=== PATIENT | female | born 1985 | race Caucasian/White ===

== ENCOUNTER 2017-12-27 16:01 | Emergency (ER) | payer OTHER ==
--- NOTE | 2017-12-27 17:10 | RAD ---
RIGHT HAND 3 VIEWS: Date: 12/27/17 HISTORY: Injury with pain. FINDINGS: Carpals appear normally aligned. Metacarpals and phalanges appear intact. IMPRESSION: No acute abnormality identified. POS: SUSI
== END 2017-12-27 17:01 | disposition home or self-care (01) ==
LOC: ERS 16:01
DX: S60.011A Contusion of right thumb without damage to nail, initial encounter (principal); Z87.442 Personal history of urinary calculi; W23.0XXA Caught, crushed, jammed, or pinched between moving objects, initial encounter

== ENCOUNTER 2018-06-23 12:40 | Emergency (ER) | payer OTHER ==
[2018-06-23] MEDS ORDERED: Ondansetron PF 4 MG/2 ML Vial ONE (13:13)
[2018-06-23] MEDS ORDERED: Famotidine/PF 20 mg/2ml Vial ONE (13:13)
[2018-06-23] MEDS ORDERED: Lidocaine Viscous Sol 2% 15 ml UD Cup ONE (13:13)
[2018-06-23] MEDS ORDERED: Mag-Al Plus 1200 MG/1200 MG/120 MG/30 ML UDCUP ONE (13:13)
[2018-06-23 13:16] LABS: #Basophils 0.1 thou/uL (0.0-0.2); #Eosinphils 0.1 thou/uL (0.0-0.7); #Lymphocytes 2.2 thou/uL (1.20-3.40); #Monocytes 0.4 thou/uL (0.11-0.59); #Neutrophils 4.4 thou/uL (1.40-6.50); %Basophils 1.1 % (0.0-1.0); %Eosinophils 1.8 % (0.0-10.0); %Lymphocytes 29.9 % (21.0-51.0); %Monocytes 6.1 % (0.0-10.0); %Neutrophils 61.1 % (42.0-75.0); Hemoglobin 13.8 g/dL (12.0-16.0); Mean Corpuscular HGB CONC 33.6 g/dL (32.0-36.0); Mean Corpuscular Hemoglobin 30.7 pg (27.0-31.0); Mean Corpuscular Volume 91.5 fL (78.0-98.0); Mean Platelet Volume 9.9 fL (7.4-10.4); Platelet Count 235 thou/uL (130-400); RBC Distribution Width 11.1 % (11.5-14.5); White Blood Cell (WBC) Count 7.2 thou/uL (4.8-10.8)
[2018-06-23 13:20] LABS: CK (CPK) 93 U/L (29-168)
[2018-06-23 13:26] LABS: CKMB 1.1 ng/mL (0-6.6); Troponin I Less than 0.010 ng/mL (< 0.028)
[2018-06-23 13:31] LABS: Pregnancy Test - Urine (BHCG) Negative (Negative)
[2018-06-23 13:32] LABS: Bilirubin Negative (Negative); Blood, Urine Negative (Negative); Clarity Clear (Clear); Glucose, Urine (Dipstick) Negative (Negative); Leukocyte Negative (Negative); Nitrite Negative (Negative); Pregu Control Background? CLEAR/WHITE (CLR/WHITE); Pregu Control Bar Appear? YES (CONTROL BAR); Protein, Urine (Dipstick) Negative (Neg-Trace); Specific Gravity 1.026 (1.002-1.036); Specific Gravity, Urine 1.026 (1.002-1.036); Urobilinogen 0.2 mg/dL (0.2-1.0); pH, Urine 5.5 (5.0-9.0)
[2018-06-23 13:41] LABS: ALT (SGPT) 28 U/L (8-55); AST (SGOT) 27 U/L (5-34); Albumin 4.3 g/dL (3.5-5.0); Alkaline Phosphatase 56 U/L (40-150); Anion Gap 14 mmol/L (10-20); BUN (Urea Nitrogen) 12 mg/dL (7.0-18.7); Bilirubin, Total 0.3 mg/dL (0.2-1.2); Calc. Creatinine Clearance 0 mL/min (70-130); Calcium 9.6 mg/dL (7.8-10.44); Carbon Dioxide 23 mmol/L (22-29); Chloride 105 mmol/L (98-107); Estimated GFR-MDRD 85; Globulin 3.6 g/dL (2.4-3.5); Glucose 85 mg/dL (70-105); Potassium 3.7 mmol/L (3.5-5.1); Protein, Total 7.9 g/dL (6.0-8.3); Sodium 138 mmol/L (136-145)
[2018-06-23 13:44] LABS: Lipase 15 U/L (8-78)
--- NOTE | 2018-06-23 14:07 | CT ---
CT ABDOMEN AND PELVIS WITHOUT CONTRAST: HISTORY: Abdominal pain. FINDINGS: Comparison is made with the exam of 11/16/2013. Absence of oral and IV contrast reduces the sensitivity of the exam, particularly for evaluation of s olid organs involved. The lung bases are clear. The patient is post cholecystectomy. No free air or free fluid is seen in the abdomen or pelvis. No calculi are noted in the kidneys, ureters, or the urinary bladder. No hy droureteral nephrosis seen on either side. A normal-appearing appendix is present. Uterus and ovari es are present. Pelvic phleboliths are again noted. No acute osseous abnormalities are seen. IMPRESSION: No CT evidence of urinary tract calculi/obstruction or appendicitis. POS: TPC
== END 2018-06-23 14:25 | disposition home or self-care (01) ==
LOC: SCSER 12:40
DX: R10.816 Epigastric abdominal tenderness (principal); Z79.84 Long term (current) use of oral hypoglycemic drugs; Z79.899 Other long term (current) drug therapy
CPT/HCPCS: 74176; 80053; 81003; 81025; 82550; 83690; 84484; 85025; 85379; 93005; 96361; 96374; 96375; J2405; S0028

== ENCOUNTER 2019-03-09 19:39 | Emergency (ER) | payer BC | END 2019-03-09 20:00 | disposition home or self-care (01) | LOC: ER/OP 19:39 | DX: Z53.21 Procedure and treatment not carried out due to patient leaving prior to being seen by health care provider (principal) | CPT/HCPCS: 87081; 87430 ==

== ENCOUNTER 2019-12-05 20:14 | Day surgery (SDC) | payer BC ==
[2019-12-05 20:51] VITALS: BP 120/74; TEMP 98.3; BMI 25.7
[2019-12-05] MEDS ORDERED: hydrALAZINE 20 MG/ML VIAL SLOW IVP PRN (21:18)
--- NOTE | 2019-12-05 21:22 | PDOC.LDHP ---
Labor and Delivery H&P Chief complaint: contractions HPI: 24yo @ 37wks by IVF complicated by A2GDM presents for contractions. States has had multiple days of contractions but starting about 1830 at onset of regular, more intense ctx, about every 2-4 min, prompting visit to labor triage. Denies any LOF, vaginal bleeding, change in vaginal discharge. + movement. Ctx now are slightly less intense per patient. Denies any MEDINA, vision changes, CP, SOB, n/v, fever/chills. Current gestational age (weeks): 37 Due date: 12/26/19 Dating criteria: other (IVF) Grav: 3 Para: 1 (0111) OB History Details: history of 1 Spontaneous ab after IVF History of PPROM at 35 weeks with son, stayed 1 week in NICU, velamentous cord insertion PCOS, on metformin A2GDM - well-controlled Current complications: gestational diabetes Past Medical History: PCOS SVT s/p ablation hypothyroidism nephrolithiasis Current medications: pre-jed vitamins, other (Vit D, claritin, flonase, levothyroxine, metformin XR) Previous surgical history: cholecystectomy, other (Right knee) Allergies/Adverse Reactions: Allergies Allergy/AdvReac Type Severity Reaction Status Date / Time erythromycin base Allergy Severe Verified 10/18/19 08:35 [Erythromycin Base] amoxicillin [Amoxicillin] Allergy Intermediate Rash Verified 10/18/19 08:35 Social history: none - Physical Exam Vital signs reviewed and normal: yes General: NAD, resting Heart: RRR Lungs: CTAB Abdomen: gravid Extremeties: no edema FHT: category 1 (accels, no deccels), variability present (moderate) [place] contractions every: 2-4 min - Vaginal Exam cm dilated: 3 Effacement: 75% Station: -2 - OB Labs Blood type: A RH: positive Antibody Screen: negative HIV: negative RPR: negative HEPSAg: negative 1 hour GCT: positive 3 hour GTT: 194 GBS: negative Rubella: immune - Assessment Term, SIUP, contractions - Plan -: 24yo @ 37wks by IVF complicated by A2GDM presents for contractions. #Term SIUP, labor check - 37wks by IVF - No leakage of fluid - SVE 3/75/-2, intact - Cat 1 strip with contractions q2-4min - Will allow to ambulate and hydrate, recheck in 2 hours to determine if progressing to active labor - GBS negative - prefers no epidural #Hypothyroidism - Continue home meds #A2GDM - well-controlled, on metformin PCP: Tori Above plan and documentation discussed with Dr. Burns, who agrees with plan.
--- NOTE | 2019-12-05 22:18 | HP ---
TIME OF EVALUATION: Roughly 2139. Time now for dictation is 2154. LOCATION: Labor and Delivery in [facility]. CHIEF COMPLAINT: Possible contractions. HISTORY OF PRESENT ILLNESS: In brief, this is a 34-year-old patient, who is a G3, P-0-1-1-1 who is at 37 weeks by IVF, who also has A2 diabetes, on metformin. She is here for on and off contractions for the last several days, but increasing since about 6 p.m. She has no leakage of fluid or vaginal bleeding. She was about 3 cm, 75% last when she was checked in the office and she is about the same here. Her contractions are present on the tocodynamometer about every 2 to 4 minutes, but they are also somewhat irregular. Vital signs are also stable. I have ordered an Accu-Chek at bedside. As the heart tones are reactive and she is still in the latent phase, at early term, we will observe for a total of 2 hours and if she is unchanged, we will likely send home. I have seen the patient at bedside and agree with the plan as outlined by Dr. Woodard who has also evaluated the patient. This is also my faculty attestation. Job ID: [id number]
--- NOTE | 2019-12-05 23:10 | PDOC.LDPN ---
Labor & Delivery Progress Note - Subjective Subjective: comfortable - Objective Vital signs reviewed and normal: yes General: NAD, resting Uterine fundus: non tender SVE: / FHT: category 1 [place] contractions every: 4-5 Plan: other (discharge) -: 24yo @ 37wks by IVF complicated by A2GDM presents for contractions. #Term SIUP, labor check - 37wks by IVF - No leakage of fluid - SVE /-2, intact - Repeat SVE 2 hours after presentation, unchanged at /-2 - Cat 1 strip with contractions q4-5min, not felt much by patient - GBS negative - prefers no epidural #Hypothyroidism - Continue home meds #A2GDM - well-controlled, on metformin Dispo: No cervical change after 2 hours. Cat 1 strip at presentation and prior to discharge. Latent labor. Discharge home with labor precautions. Patient voiced understanding and agreement, all questions answered. Encouraged to follow up with OB as previously directed. PCP: Tori Above plan and documentation discussed with Dr. Burns, who agrees with plan.
== END 2019-12-05 23:45 | disposition home or self-care (01) ==
LOC: L&D/OP 20:14
PROVIDERS: ATTEND Student in an Organized Health Care Education/Training Program
DX: O47.1 False labor at or after 37 completed weeks of gestation (principal); O24.415 Gestational diabetes mellitus in pregnancy, controlled by oral hypoglycemic drugs; O99.283 Endocrine, nutritional and metabolic diseases complicating pregnancy, third trimester; E28.2 Polycystic ovarian syndrome; E03.9 Hypothyroidism, unspecified; O09.293 Supervision of pregnancy with other poor reproductive or obstetric history, third trimester; O09.813 Supervision of pregnancy resulting from assisted reproductive technology, third trimester; Z3A.37 37 weeks gestation of pregnancy; Z79.84 Long term (current) use of oral hypoglycemic drugs; Z79.899 Other long term (current) drug therapy; Z88.1 Allergy status to other antibiotic agents; Z88.0 Allergy status to penicillin
CPT/HCPCS: 99283

== ENCOUNTER 2019-12-06 22:34 | Day surgery (SDC) | payer BC ==
[2019-12-06 23:03] VITALS: BP 114/75; TEMP 98.8; BMI 25.7
--- NOTE | 2019-12-06 23:24 | PDOC.LDHP ---
Labor and Delivery H&P Chief complaint: contractions HPI: 34 y/o at 36w5d by IVF dating, patient of Dr. Valle, presents with ctx q 5 mins. Denies VB, LOF, or decreased FM. Was seen here last night and 3cm. Has continued to ctx today but started feeling them more in her back so she decided to come back in. ROS neg for HEENT, cv, pulm, gi, gu, neuro, psych, skin, musculoskeletal or constitutional symptoms other than mentioned above. OB History Details: 1st delivery at 35+ weeks after PROM 1 SAB Current complications: gestational diabetes (A2), other (IVF ) Current medications: pre- vitamins, other (meformin) Previous surgical history: none Allergies/Adverse Reactions: Allergies Allergy/AdvReac Type Severity Reaction Status Date / Time erythromycin base Allergy Severe Verified 12/06/19 22:53 [Erythromycin Base] amoxicillin [Amoxicillin] Allergy Intermediate Rash Verified 12/06/19 22:53 Social history: none - Physical Exam Vital signs reviewed and normal: yes General: NAD, resting Lungs: nonlabored breathing Abdomen: gravid Extremeties: no edema FHT: category 1 (135, mod variability, + accels, no decels) [place] contractions every: 6 mins - Vaginal Exam cm dilated: 3 Effacement: 75% Station: -2 - Assessment 34 y/o at 36w5d with no e/o active labor. status reassuring with reactive NST. - Plan -: Given option to stay and be rechecked but desires to go home and return if sx worsen. D/c home with precautions. Advised to keep all appointments.
== END 2019-12-06 23:35 | disposition home or self-care (01) ==
LOC: L&D/OP 22:34
PROVIDERS: ATTEND Student in an Organized Health Care Education/Training Program
DX: O47.03 False labor before 37 completed weeks of gestation, third trimester (principal); O24.415 Gestational diabetes mellitus in pregnancy, controlled by oral hypoglycemic drugs; O09.813 Supervision of pregnancy resulting from assisted reproductive technology, third trimester; O09.293 Supervision of pregnancy with other poor reproductive or obstetric history, third trimester; Z3A.36 36 weeks gestation of pregnancy; Z79.84 Long term (current) use of oral hypoglycemic drugs; Z88.0 Allergy status to penicillin; Z88.1 Allergy status to other antibiotic agents
CPT/HCPCS: 99282

== ENCOUNTER 2019-12-20 18:19 | Inpatient (IN) | payer BC ==
[2019-12-20] MEDS ORDERED: Butorphanol Tartrate 1 MG/ML VIAL SLOW IVP PRN (20:36)
[2019-12-20] MEDS ORDERED: Promethazine HCl 25 MG/ML VIAL IM PRN (20:36)
[2019-12-20] MEDS ORDERED: NS / Oxytocin 40 units/1000ml 1,000 ML IV PRN (20:36)
[2019-12-20] MEDS ORDERED: HYDROcodone/Acetaminophen 5/325 mg Tablet PO PRN ×2 (20:36)
[2019-12-20] MEDS ORDERED: Lidocaine 1% (PF) 30 ML VIAL SC PRN (20:36)
[2019-12-20] MEDS ORDERED: Ibuprofen 800 MG TAB PO PRN (20:36)
[2019-12-20] MEDS ORDERED: Ondansetron PF 4 MG/2 ML Vial IVP PRN (20:36)
[2019-12-20] MEDS ORDERED: hydrALAZINE 20 MG/ML VIAL SLOW IVP PRN (20:36)
[2019-12-20] MEDS ORDERED: Lactated Ringer's 1,000 ML IV SCH (20:45)
--- NOTE | 2019-12-20 20:46 | PDOC.LDHP ---
Labor and Delivery H&P Chief complaint: contractions HPI: 34 yo WF presents c/o regular UCs since this PM. Denies SROM or bleeding. Current gestational age (weeks): 38 Due date: 12/29/19 Dating criteria: last menstrual period Grav: 3 Para: 1 OB History Details: at 35 weeks SAB, no D&C Current complications: gestational diabetes Abnormal US findings: No Past Medical History: PCO kidney stones Current medications: pre-jed vitamins, iron, other (Metformin 1500 q HS) Previous surgical history: cholecystectomy, none (ureteral stent knee ablation for SVT) Allergies/Adverse Reactions: Allergies Allergy/AdvReac Type Severity Reaction Status Date / Time erythromycin base Allergy Severe Verified 12/20/19 18:42 [Erythromycin Base] amoxicillin [Amoxicillin] Allergy Intermediate Rash Verified 12/20/19 18:42 Social history: none - Physical Exam Vital signs reviewed and normal: yes General: resting Heart: RRR Lungs: CTAB Abdomen: gravid Extremeties: trace edema FHT: category 1 [place] contractions every: q 3-6 mins - Vaginal Exam cm dilated: 5 Effacement: 75% Station: -1 - OB Labs Blood type: A RH: positive Antibody Screen: negative HIV: negative RPR: negative HEPSAg: negative GBS: negative Rubella: immune - Assessment L&D Assessment: term patient in labor (early labor) - Plan Plan: admit to L&D, informed consent obtained, anesthesia consult for pain management, other (Dr. Valle notified of admit)
[2019-12-20 21:10] LABS: Hemoglobin 12.3 g/dL (12.0-16.0); Mean Corpuscular HGB CONC 34.3 g/dL (32.0-36.0); Mean Corpuscular Hemoglobin 28.8 pg (27.0-31.0); Mean Corpuscular Volume 83.9 fL (78.0-98.0); Mean Platelet Volume 11.2 fL (7.4-10.4); Platelet Count 146 thou/uL (130-400); RBC Distribution Width 16.5 % (11.5-14.5); Red Blood Cell (RBC) Count 4.27 mill/uL (4.20-5.40)
[2019-12-20 21:51] LABS: Syphilis Antibody Nonreactive (Nonreactive); Syphilis Antibody Index 0.05 S/CO (<1.00 Non-Reactive)
[2019-12-20 22:08] LABS: HBSAg Index 0.15 S/CO (0-0.99); Hep B Surf Ag Non-Reactive S/CO (NonReactive)
[2019-12-20 22:39] VITALS: BMI 25.8
[2019-12-21] MEDS ORDERED: NS w/ Oxytocin 10 units 500 ML IV SCH (07:45)
[2019-12-21] MEDS: Lactated Ringer's 1,000 ML IV SCH ×2 (07:56→13:30)
--- NOTE | 2019-12-21 09:47 | PDOC.LDPN ---
Labor & Delivery Progress Note - Subjective Subjective: comfortable - Objective Vital signs reviewed and normal: yes General: NAD Uterine fundus: non tender Dilation: 6 Effacement: 90% Station: 0 FHT: category 1 [place] contractions every: 3min AROM: clear fluid Plan: labor augmentation
[2019-12-21] MEDS ORDERED: Lidocaine 1% (PF) 30 ML VIAL ONE (09:54)
[2019-12-21] MEDS ORDERED: NS / Oxytocin 40 units/1000ml 1,000 ML ONE (09:54)
[2019-12-21] MEDS ORDERED: Methylergonovine 0.2 MG/ML VIAL ONE (10:53)
[2019-12-21] MEDS ORDERED: Misoprostol 200 MCG TAB ONE (10:59)
[2019-12-21 11:05] LABS: SARS-CoV-2 MS2 Positive; SARS-CoV-2 N Gene Negative; SARS-CoV-2 S Gene Negative; SARS-CoV-2 by NAA Not Detected (NotDetected); SARS-CoV-2 orf1ab Negative
[2019-12-21] MEDS ORDERED: Calcium Carbonate 500 MG ChewTAB PO PRN (11:42)
--- NOTE | 2019-12-21 12:55 | PDOC.OPDEL ---
OB Operative/Delivery Note Delivery Dr/Surgeon: Tori Assist: n/a Pre-Delivery Diagnosis: active labor Procedure/Post Delivery Dx: spontaneous vaginal delivery Weeks gestation: 38 Anesthesia: local - Findings A Sex: female - 1 min: 8 - 5 min: 9 - Additional Findings/Plan Placenta delivered: spontaneous Repaired Obstetrical Laceration: 2nd degree Estimated blood loss: 600cc Post delivery plan: routine recovery
[2019-12-21] MEDS ORDERED: Benzocaine-Menthol 82.5 ML CAN TOP PRN (13:20)
[2019-12-21] MEDS ORDERED: hydrALAZINE 20 MG/ML VIAL SLOW IVP PRN (13:20)
[2019-12-21] MEDS ORDERED: Ondansetron PF 4 MG/2 ML Vial IVP PRN (13:20)
[2019-12-21] MEDS ORDERED: Preparation H Ointment 28 GM TUBE PR PRN (13:20)
[2019-12-21] MEDS ORDERED: Promethazine HCl 25 MG/ML VIAL IM PRN (13:20)
[2019-12-21] MEDS ORDERED: Bisacodyl 10 MG SUPP PR PRN (13:20)
[2019-12-21] MEDS ORDERED: NS / Oxytocin 40 units/1000ml 1,000 ML IV SCH (13:20)
[2019-12-21] MEDS ORDERED: HYDROcodone/Acetaminophen 5/325 mg Tablet PO PRN ×2 (13:20)
[2019-12-21] MEDS ORDERED: Adacel (T-DAP) 0.5 ML SYRINGE IM ONE (13:20)
[2019-12-21] MEDS ORDERED: diphenhydrAMINE 25 MG CAP PO PRN (13:20)
[2019-12-21] MEDS ORDERED: Milk Of Magnesia 30 ML UDCUP PO PRN (13:20)
[2019-12-21] MEDS ORDERED: Lanolin Ointment 7 GM TUBE TOP PRN (13:20)
[2019-12-21] MEDS: Ibuprofen 800 MG TAB PO SCH ×2 (14:21→21:06)
[2019-12-21] MEDS: Ferrous Sulfate 325 MG TAB PO SCH (17:03)
[2019-12-21] MEDS: Docusate Calcium (SURFAK) 240 MG CAP PO SCH (21:07)
[2019-12-21] MEDS ORDERED: Sodium Chloride 0.9% 10 ML ONE (22:07)
[2019-12-22] MEDS: Lactated Ringer's 1,000 ML IV SCH (02:14)
[2019-12-22] MEDS: Ibuprofen 800 MG TAB PO SCH ×2 (05:40→13:42)
[2019-12-22 06:22] LABS: Hemoglobin 10.3 g/dL (12.0-16.0)
[2019-12-22 06:28] VITALS: TEMP 97.7
[2019-12-22 08:16] VITALS: BP 105/73
[2019-12-22] MEDS: Docusate Calcium (SURFAK) 240 MG CAP PO SCH (08:26)
[2019-12-22] MEDS: Ferrous Sulfate 325 MG TAB PO SCH ×2 (08:27→16:26)
[2019-12-22] MEDS ORDERED: Prenatal Vitamin 1 TAB PO SCH (09:00)
--- NOTE | 2019-12-22 14:33 | PDOC.PP ---
Post Progress Note Post Day #: 1 PO intake tolerated: yes Flatus: yes Ambulation: yes Vital Signs (12 hours) Temp Pulse Resp BP Pulse Ox 12/22/19 08:15 97.7 F 85 2 L 105/73 100 12/22/19 05:40 97.7 F 90 15 102/60 Weight Weight 146 lb - Physical Examination General: NAD Respiratory: non-labored breathing Abdominal: no distention, appropriately TTP Neurological: no gross focal deficits Psychiatric: normal affect Result Diagrams: 12/22/19 05:55 Additional Labs: Post Labs Hep Bs Antigen Non-Reactive S/CO (NonReactive) 12/20/19 20:58 Blood Type A POSITIVE 12/20/19 20:58 - Assessment/Plan PPD1 s/p TSVD VSSAF Acute blood loss anemia- asymptomatic, cont iron and PNV Pain controlled, lochia < menses Rh pos RImm DC home FU 6w
== END 2019-12-22 17:30 | disposition home or self-care (01) | DRG 806 ==
LOC: L&D/OP 18:19 → L&D 12-21 05:19 → 3SW 12-21 12:59
PROVIDERS: ADMIT Student in an Organized Health Care Education/Training Program; ATTEND Student in an Organized Health Care Education/Training Program
PROC: 10E0XZZ Delivery of Products of Conception, External Approach (ICD-10-PCS; principal; 2019-12-21)
PROC: 0KQM0ZZ Repair Perineum Muscle, Open Approach (ICD-10-PCS; 2019-12-21)
PROC: 10907ZC Drainage of Amniotic Fluid, Therapeutic from Products of Conception, Via Natural or Artificial Opening (ICD-10-PCS; 2019-12-21)
DX: O24.429 Gestational diabetes mellitus in childbirth, unspecified control (principal); D62 Acute posthemorrhagic anemia; Z37.0 Single live birth; Z3A.38 38 weeks gestation of pregnancy; Z90.49 Acquired absence of other specified parts of digestive tract; Z88.1 Allergy status to other antibiotic agents; O70.1 Second degree perineal laceration during delivery; Z20.828 Contact with and (suspected) exposure to other viral communicable diseases
CPT/HCPCS: 36415; 85014; 85018; 85027; 86780; 86850; 86900; 86901; 87340; 87635; 99285; J2001; J2210; J2590; U0003

== ENCOUNTER 2022-09-11 08:04 | Outpatient (CLI) | payer BC | END 2022-09-11 08:05 | disposition home or self-care (01) | LOC: BICMAMMO 08:04 | PROVIDERS: ATTEND Obstetrics & Gynecology | DX: N60.11 Diffuse cystic mastopathy of right breast (principal); Z91.89 Other specified personal risk factors, not elsewhere classified | CPT/HCPCS: 77066; G0279 ==

== ENCOUNTER 2022-10-19 09:56 | Emergency (ER) | payer BC ==
[2022-10-19] MEDS ORDERED: Ketorolac Tromethamine 30 MG/ML VIAL ONE (10:35)
[2022-10-19] MEDS ORDERED: Diazepam 10 MG/2 ML SYRINGE ONE (10:37)
[2022-10-19] MEDS ORDERED: Dexamethasone 10 MG/ML VIAL ONE (10:38)
[2022-10-19] MEDS ORDERED: Diazepam 5 MG TAB ONE (10:38)
== END 2022-10-19 11:12 | disposition home or self-care (01) ==
LOC: ERS 09:56
DX: S39.012A Strain of muscle, fascia and tendon of lower back, initial encounter (principal); X58.XXXA Exposure to other specified factors, initial encounter
CPT/HCPCS: 96372; 99283; J1100; J1885; J3360